=== PATIENT | female | born 1950 | race Two or more races ===

== ENCOUNTER 2016-12-07 17:07 | Emergency (ER) | payer MEDICARE, MEDICAID ==
[2016-12-07 18:15] LABS: HEMATOCRIT 38.9 % (37.0-47.0); HEMOGLOBIN 12.6 g/dl (12.0-16.0); IMMATURE GRANULOCYTES 0.4 % (0.0-1.0); MEAN CELL VOLUME 71.4 fL CALC (80.0-100.0); MEAN CORPUSCULAR HGB 23.1 pG CALC (26.0-32.0); MEAN CORPUSCULAR HGB CONC 32.4 g/L CALC (32.0-36.0); NEUT# 7.23 thou/uL (2.00-7.15); RED BLOOD COUNT 5.45 mill/uL (4.20-5.60); RED CELL DISTRI WIDTH 15.9 % (11.5-15.5)
[2016-12-07 18:36] LABS: ALBUMIN 4.2 g/dL (3.2-5.0); ALKALINE PHOSPHATASE 115 u/l (38-126); ANION GAP 14 (6-22 (CALC)); BILIRUBIN, TOTAL 0.5 mg/dL (0.0-1.4); BUN 16 mg/dL (8-23); BUN/CREATININE RATIO 14 (12-20 (CALC)); CALCIUM 9.4 mg/dL (8.4-10.2); CARBON DIOXIDE 25 mmol/l (22-30); CHLORIDE 105 mmol/l (95-108); CREATININE 1.1 mg/dL (0.5-1.0); GFR 50 ML/MIN (>=60 (CALC)); GFR FOR AFR.AMER. 60 ML/MIN (>=60 (CALC)); GLUCOSE 86 mg/dL (82-115); POTASSIUM 3.9 mmol/l (3.5-5.1); SGOT/AST 34 u/l (9-36); SGPT/ALT 27 u/l (11-66); SODIUM 141 mmol/l (137-146); TOTAL PROTEIN 8.1 g/dL (6.3-8.2)
[2016-12-07 18:42] LABS: INFLUENZA A NONE DETECTED (NONE DETECT); INFLUENZA B NONE DETECTED (NONE DETECT)
[2016-12-07 18:48] LABS: MYOGLOBIN 61 ng/mL (0 - 62)
[2016-12-07] MEDS ORDERED: VENTOLIN HFA IN (20:41)
[2016-12-07] MEDS ORDERED: PROAIR HFA IN (20:42)
[2016-12-07] MEDS ORDERED: EXCEDRIN ES PO (20:43)
[2016-12-07 20:49] VITALS: BP 152/82
== END 2016-12-07 21:00 | disposition home or self-care (01) ==
LOC: ED 17:07
PROVIDERS: Emergency Medicine
DX: J44.1 Chronic obstructive pulmonary disease with (acute) exacerbation (principal); R06.02 Shortness of breath; Z72.0 Tobacco use; R94.31 Abnormal electrocardiogram [ECG] [EKG]

== ENCOUNTER 2017-03-24 17:09 | Emergency (ER) | payer MEDICARE, MEDICAID ==
[~2017-03-24 17:09] MED LIST: EXCEDRIN ES PO; PROAIR HFA IN; VENTOLIN HFA IN
[2017-03-24 18:29] LABS: HEMATOCRIT 41.3 % (37.0-47.0); HEMOGLOBIN 13.3 g/dl (12.0-16.0); IMMATURE GRANULOCYTES 0.3 % (0.0-1.0); MEAN CELL VOLUME 71.5 fL CALC (80.0-100.0); MEAN CORPUSCULAR HGB CONC 32.2 g/L CALC (32.0-36.0); NEUT# 6.72 thou/uL (2.00-7.15); RED BLOOD COUNT 5.78 mill/uL (4.20-5.60); RED CELL DISTRI WIDTH 15.8 % (11.5-15.5)
[2017-03-24 18:49] LABS: ALBUMIN 4.9 g/dL (3.2-5.0); BILIRUBIN, TOTAL 0.7 mg/dL (0.0-1.4); CALCIUM 9.6 mg/dL (8.4-10.2); CREATININE 1.1 mg/dL (0.5-1.0); POTASSIUM 4.5 mmol/l (3.5-5.1); TOTAL PROTEIN 8.5 g/dL (6.3-8.2)
[2017-03-24] MEDS ORDERED: ZITHROMAX250 MG PO (19:06)
[2017-03-24 19:20] VITALS: BP 170/85
== END 2017-03-24 19:21 | disposition home or self-care (01) ==
LOC: ED 17:09
PROVIDERS: Emergency Medicine
DX: I10 Essential (primary) hypertension (principal); R05 Cough; J45.909 Unspecified asthma, uncomplicated; F17.200 Nicotine dependence, unspecified, uncomplicated

== ENCOUNTER 2017-07-04 18:04 | Emergency (ER) | payer MEDICARE ==
[~2017-07-04] VITALS: Ht 165.1 cm; Wt 54.0 kg
[~2017-07-04 18:04] MED LIST changes: +ZITHROMAX250 MG PO
[2017-07-04] MEDS ORDERED: TYLENOL325 M2 (18:50)
[2017-07-04 18:56] LABS: HEMATOCRIT 40.2 % (37.0-47.0); IMMATURE GRANULOCYTES 0.2 % (0.0-1.0); MEAN CELL VOLUME 70.9 fL CALC (80.0-100.0); MEAN CORPUSCULAR HGB 22.9 pG CALC (26.0-32.0); MEAN CORPUSCULAR HGB CONC 32.3 g/L CALC (32.0-36.0); NEUT# 6.4 thou/uL (2.00-7.15); RED BLOOD COUNT 5.67 mill/uL (4.20-5.60); RED CELL DISTRI WIDTH 15.4 % (11.5-15.5)
[2017-07-04 19:10] LABS: ALBUMIN 4.4 g/dL (3.2-5.0); BILIRUBIN, TOTAL 0.6 mg/dL (0.0-1.4); CALCIUM 9.6 mg/dL (8.4-10.2); CREATININE 1.1 mg/dL (0.5-1.0); POTASSIUM 3.8 mmol/l (3.5-5.1); TOTAL PROTEIN 7.8 g/dL (6.3-8.2)
[2017-07-04] MEDS ORDERED: ZITHROMAX250 MG PO (20:20)
[2017-07-04] MEDS ORDERED: MEDDOSEPAK PO (20:20)
[2017-07-04] MEDS ORDERED: PROVENTIL HFA IN (20:21)
[2017-07-04 20:26] VITALS: BP 183/100
== END 2017-07-04 20:30 | disposition home or self-care (01) ==
LOC: ED 18:04
PROVIDERS: Emergency Medicine
DX: R06.00 Dyspnea, unspecified (principal); R05 Cough; R00.1 Bradycardia, unspecified; R09.81 Nasal congestion; F17.210 Nicotine dependence, cigarettes, uncomplicated

== ENCOUNTER 2017-12-20 18:35 | Emergency (ER) | payer MEDICARE ==
[~2017-12-20] VITALS: Ht 165.1 cm; Wt 55.0 kg
[~2017-12-20 18:35] MED LIST changes: +MEDDOSEPAK PO; +PROVENTIL HFA IN; +TYLENOL325 M2
[2017-12-20 19:21] LABS: INFLUENZA A NONE DETECTED (NONE DETECT); INFLUENZA B NONE DETECTED (NONE DETECT)
[2017-12-20] MEDS ORDERED: PROAIR HFA108 MCG/AC IN (19:51)
[2017-12-20 19:57] VITALS: BP 170/91
== END 2017-12-20 20:06 | disposition home or self-care (01) ==
LOC: ED 18:35
PROVIDERS: Emergency Medicine
DX: J45.901 Unspecified asthma with (acute) exacerbation (principal); F17.210 Nicotine dependence, cigarettes, uncomplicated

== ENCOUNTER 2018-03-02 11:38 | Emergency (ER) | payer MEDICARE ==
[~2018-03-02] VITALS: Ht 165.1 cm; Wt 59.0 kg
[~2018-03-02 11:38] MED LIST changes: +PROAIR HFA108 MCG/AC IN
[2018-03-02] MEDS ORDERED: BENADRYL 25MG C25 MG PO (11:53)
[2018-03-02] MEDS ORDERED: ERYTHROMYCIN250 MG PO (11:53)
[2018-03-02] MEDS ORDERED: ZYRTEC10 M5 PO (12:19)
[2018-03-02] MEDS ORDERED: MEDDOSEPAK PO (12:28)
[2018-03-02 12:29] VITALS: BP 139/74
== END 2018-03-02 12:29 | disposition home or self-care (01) ==
LOC: ED 11:38
DX: R21 Rash and other nonspecific skin eruption (principal); J45.909 Unspecified asthma, uncomplicated; F17.210 Nicotine dependence, cigarettes, uncomplicated

== ENCOUNTER 2018-03-14 15:50 | Emergency (ER) | payer MEDICARE ==
[~2018-03-14] VITALS: Ht 165.1 cm; Wt 70.0 kg
[~2018-03-14 15:50] MED LIST changes: +BENADRYL 25MG C25 MG PO; +ERYTHROMYCIN250 MG PO; +ZYRTEC10 M5 PO
[2018-03-14] MEDS ORDERED: MEDDOSEPAK PO (17:04)
[2018-03-14 17:37] VITALS: BP 110/60
== END 2018-03-14 17:38 | disposition home or self-care (01) ==
LOC: ED 15:50
DX: L30.9 Dermatitis, unspecified (principal); J45.909 Unspecified asthma, uncomplicated; F17.210 Nicotine dependence, cigarettes, uncomplicated

== ENCOUNTER 2018-06-06 15:42 | Emergency (ER) | payer MEDICARE ==
[~2018-06-06] VITALS: Ht 165.1 cm; Wt 50.0 kg
[2018-06-06] MEDS ORDERED: AUGMENTIN875TAB PO (16:18)
[2018-06-06 16:50] VITALS: BP 138/87
== END 2018-06-06 16:50 | disposition home or self-care (01) ==
LOC: ED 15:42
DX: S61.452A Open bite of left hand, initial encounter (principal); J45.909 Unspecified asthma, uncomplicated; F17.200 Nicotine dependence, unspecified, uncomplicated; W55.01XA Bitten by cat, initial encounter

== ENCOUNTER 2018-07-12 16:44 | Emergency (ER) | payer MEDICARE ==
[~2018-07-12] VITALS: Ht 165.1 cm; Wt 45.5 kg
[~2018-07-12 16:44] MED LIST changes: +AUGMENTIN875TAB PO
[2018-07-12 17:43] VITALS: BP 138/69
[2018-07-12 17:50] VITALS: BP 108/53
[2018-07-12 18:11] LABS: URINE BILIRUBIN - DIPSTICK NEGATIVE (NEGATIVE); URINE BLOOD DIPSTICK LARGE (NEGATIVE); URINE GLUCOSE - DIPSTICK NEGATIVE (NEGATIVE); URINE KETONE TRACE mg/dL (NEGATIVE); URINE LEUK ESTERASE NEGATIVE (NEGATIVE); URINE NITRITE - DIPSTICK NEGATIVE (Negative); URINE PROTEIN - DIPSTICK >=300 mg/dL (NEG-TRACE); URINE SPECIFIC GRAVITY >=1.030; URINE UROBILINOGEN - DIPSTICK 0.2 E.U./dL (0.2)
[2018-07-12 18:14] VITALS: BP 117/63
[2018-07-12 18:16] LABS: URINE CLARITY CLOUDY; URINE COLOR BLOODY; URINE EPITHELIAL CELLS FEW EPI/hpf (0-FEW); URINE RBC TNTC RBC/hpf (0-5)
[2018-07-12 18:47] VITALS: BP 117/63
== END 2018-07-12 18:30 ==
LOC: ED 16:44
PROVIDERS: Emergency Medicine
PROC: 2W3RX1Z Immobilization of Left Lower Leg using Splint (ICD-10-PCS; principal; 2018-07-12)
PROC: 0T9B70Z Drainage of Bladder with Drainage Device, Via Natural or Artificial Opening (ICD-10-PCS; 2018-07-12)
PROC: 30233N1 Transfusion of Nonautologous Red Blood Cells into Peripheral Vein, Percutaneous Approach (ICD-10-PCS; 2018-07-12)
PROC: 30233N1 Transfusion of Nonautologous Red Blood Cells into Peripheral Vein, Percutaneous Approach (ICD-10-PCS; 2018-07-12)
DX: S82.452B Displaced comminuted fracture of shaft of left fibula, initial encounter for open fracture type I or II (principal); S82.252B Displaced comminuted fracture of shaft of left tibia, initial encounter for open fracture type I or II; S32.592A Other specified fracture of left pubis, initial encounter for closed fracture; S32.591A Other specified fracture of right pubis, initial encounter for closed fracture; R31.9 Hematuria, unspecified; J45.909 Unspecified asthma, uncomplicated; F17.200 Nicotine dependence, unspecified, uncomplicated; V09.00XA Pedestrian injured in nontraffic accident involving unspecified motor vehicles, initial encounter; Y93.89 Activity, other specified; Y92.481 Parking lot as the place of occurrence of the external cause
CPT/HCPCS: P9016

== ENCOUNTER 2018-12-28 17:17 | Emergency (ER) | payer MEDICARE ==
[~2018-12-28] VITALS: Ht 165.1 cm; Wt 51.0 kg
[2018-12-28] MEDS ORDERED: AUGMENTIN875TAB PO (17:45)
[2018-12-28] MEDS ORDERED: ALL DAY10 MG PO (17:45)
[2018-12-28] MEDS ORDERED: VENTOLIN H108 MCG/AC PR (17:56)
[2018-12-28 18:00] VITALS: BP 139/91
== END 2018-12-28 18:00 | disposition home or self-care (01) ==
LOC: ED 17:17
DX: S80.812A Abrasion, left lower leg, initial encounter (principal); F17.210 Nicotine dependence, cigarettes, uncomplicated; W55.03XA Scratched by cat, initial encounter

== ENCOUNTER 2019-01-16 20:55 | Observation (INO) | payer MEDICARE ==
[~2019-01-16] VITALS: Ht 165.1 cm; Wt 49.0 kg
[~2019-01-16 20:55] MED LIST changes: +ALL DAY10 MG PO; +VENTOLIN H108 MCG/AC PR
[2019-01-16 21:33] LABS: HEMATOCRIT 40.3 % (37.0-47.0); HEMOGLOBIN 12.9 g/dl (12.0-16.0); IMMATURE GRANULOCYTES 0.4 % (0.0-5.0); MEAN CELL VOLUME 70.6 fL CALC (80.0-100.0); MEAN CORPUSCULAR HGB 22.6 pG CALC (26.0-32.0); NEUT# 6.76 thou/uL (2.00-7.15); RED BLOOD COUNT 5.71 mill/uL (4.20-5.60); RED CELL DISTRI WIDTH 15.7 % (11.5-15.5)
[2019-01-16] MEDS ORDERED: BENADRYL 25MG C25 MG PO (21:35)
[2019-01-16] MEDS ORDERED: MAPAP325 MG PO (21:36)
[2019-01-16] MEDS ORDERED: ASPIRIN325 MG PO (21:37)
[2019-01-16] MEDS ORDERED: AMLODIPINE BES2.5 MG PO (21:37)
[2019-01-16] MEDS ORDERED: ROBITUSSIN200 MG/10 PO (21:38)
[2019-01-16 21:48] LABS: ALBUMIN 4.4 g/dL (3.2-5.0); ALKALINE PHOSPHATASE 135 u/l (38-126); ANION GAP 14 (6-22 (CALC)); BILIRUBIN, TOTAL 0.4 mg/dL (0.0-1.4); BUN 15 mg/dL (8-23); BUN/CREATININE RATIO 17 (12-20 (CALC)); CARBON DIOXIDE 25 mmol/l (22-30); CHLORIDE 104 mmol/l (95-108); CREATININE 0.9 mg/dL (0.5-1.0); GFR > 60 ML/MIN (>=60 (CALC)); GFR FOR AFR.AMER. > 60 ML/MIN (>=60 (CALC)); POTASSIUM 3.4 mmol/l (3.5-5.1); PROTHROMBIN TIME 10.7 SECONDS (9.0-12.5); SGOT/AST 30 u/l (9-36); SODIUM 139 mmol/l (137-146); TOTAL PROTEIN 7.4 g/dL (6.3-8.2)
[2019-01-16 21:57] LABS: MYOGLOBIN 57 ng/mL (0 - 62)
[2019-01-17 02:13] VITALS: BP 158/87
[2019-01-17 04:46] VITALS: BP 152/83
[2019-01-17 08:08] VITALS: BP 137/81
[2019-01-17 11:05] VITALS: BP 157/82
[2019-01-17 16:05] VITALS: BP 154/90
[2019-01-17 19:06] VITALS: BP 138/73
[2019-01-18] VITALS: BP 127/74
[2019-01-18 04:06] VITALS: BP 151/77
[2019-01-18 05:32] LABS: HEMATOCRIT 41.1 % (37.0-47.0); HEMOGLOBIN 13.2 g/dl (12.0-16.0); IMMATURE GRANULOCYTES 0.4 % (0.0-5.0); MEAN CELL VOLUME 70.7 fL CALC (80.0-100.0); MEAN CORPUSCULAR HGB 22.7 pG CALC (26.0-32.0); MEAN CORPUSCULAR HGB CONC 32.1 g/L CALC (32.0-36.0); NEUT# 8.59 thou/uL (2.00-7.15); RED BLOOD COUNT 5.81 mill/uL (4.20-5.60); RED CELL DISTRI WIDTH 15.4 % (11.5-15.5)
[2019-01-18 05:55] LABS: ALBUMIN 4.4 g/dL (3.2-5.0); ALKALINE PHOSPHATASE 137 u/l (38-126); ANION GAP 16 (6-22 (CALC)); BILIRUBIN, TOTAL 0.3 mg/dL (0.0-1.4); BUN 19 mg/dL (8-23); BUN/CREATININE RATIO 22 (12-20 (CALC)); CARBON DIOXIDE 26 mmol/l (22-30); CHLORIDE 105 mmol/l (95-108); CREATININE 0.9 mg/dL (0.5-1.0); GFR > 60 ML/MIN (>=60 (CALC)); GFR FOR AFR.AMER. > 60 ML/MIN (>=60 (CALC)); MAGNESIUM 2.1 mg/dL (1.6-2.3); SGOT/AST 27 u/l (9-36); SODIUM 142 mmol/l (137-146); TOTAL PROTEIN 7.3 g/dL (6.3-8.2)
[2019-01-18 06:07] LABS: POTASSIUM 4.7 mmol/l (3.5-5.1)
[2019-01-18 08:35] VITALS: BP 136/79
[2019-01-18 10:20] LABS: URINE BILIRUBIN - DIPSTICK NEGATIVE (NEGATIVE); URINE BLOOD DIPSTICK NEGATIVE (NEGATIVE); URINE COLOR YELLOW; URINE GLUCOSE - DIPSTICK NEGATIVE (NEGATIVE); URINE KETONE NEGATIVE (NEGATIVE); URINE LEUK ESTERASE NEGATIVE (NEGATIVE); URINE NITRITE - DIPSTICK NEGATIVE (Negative); URINE PROTEIN - DIPSTICK NEGATIVE (NEG-TRACE); URINE UROBILINOGEN - DIPSTICK 0.2 E.U./dL (0.2)
[2019-01-18 10:28] LABS: CHOLESTEROL HDL RATIO 2.7 (<4.4 (CALC))
[2019-01-18 10:40] VITALS: BP 159/86
[2019-01-18] MEDS ORDERED: PANTOPRAZOLE SO40 M1 PO (12:06)
[2019-01-18] MEDS ORDERED: MEDDOSEPAK PO (12:06)
[2019-01-18] MEDS ORDERED: ZPAK PO (12:07)
[2019-01-18 14:45] VITALS: BP 139/69
[2019-01-18 19:09] VITALS: BP 145/85
[2019-01-19] VITALS: BP 156/89
[2019-01-19 04:09] VITALS: BP 171/92
[2019-01-19 07:41] VITALS: BP 159/82
[2019-01-19 11:28] VITALS: BP 145/70
== END 2019-01-19 15:48 | disposition home or self-care (01) ==
LOC: ED 20:55 → ED-I 01-17 01:13 → ED 01-17 01:40 → MS2 01-17 01:41
PROVIDERS: Emergency Medicine; Internal Medicine Nephrology; Nurse Practitioner Family; ADMIT Internal Medicine; ATTEND Internal Medicine
DX: J44.1 Chronic obstructive pulmonary disease with (acute) exacerbation (principal); J44.0 Chronic obstructive pulmonary disease with (acute) lower respiratory infection; J20.9 Acute bronchitis, unspecified; I10 Essential (primary) hypertension; F41.1 Generalized anxiety disorder; F32.9 Major depressive disorder, single episode, unspecified; F17.200 Nicotine dependence, unspecified, uncomplicated; F20.9 Schizophrenia, unspecified; E46 Unspecified protein-calorie malnutrition; R09.02 Hypoxemia; R06.89 Other abnormalities of breathing; F22 Delusional disorders; Z68.1 Body mass index [BMI] 19.9 or less, adult
CPT/HCPCS: J1650

== ENCOUNTER 2019-07-10 20:47 | Emergency (ER) | payer MEDICARE ==
[~2019-07-10] VITALS: Ht 165.1 cm; Wt 48.0 kg
[~2019-07-10 20:47] MED LIST changes: +AMLODIPINE BES2.5 MG PO; +ASPIRIN325 MG PO; +MAPAP325 MG PO; +PANTOPRAZOLE SO40 M1 PO; +ROBITUSSIN200 MG/10 PO; +ZPAK PO
[2019-07-10 21:30] LABS: HEMOGLOBIN 11.6 g/dl (12.0-16.0); IMMATURE GRANULOCYTES 0.3 % (0.0-5.0); MEAN CORPUSCULAR HGB 22.6 pG CALC (26.0-32.0); MEAN CORPUSCULAR HGB CONC 31.4 g/L CALC (32.0-36.0); NEUT# 5.52 thou/uL (2.00-7.15); RED BLOOD COUNT 5.14 mill/uL (4.20-5.60); RED CELL DISTRI WIDTH 15.9 % (11.5-15.5)
[2019-07-10 21:47] LABS: ALKALINE PHOSPHATASE 95 u/l (38-126); BILIRUBIN, TOTAL 0.3 mg/dL (0.0-1.4); BUN 21 mg/dL (8-23); BUN/CREATININE RATIO 18 (12-20 (CALC)); CARBON DIOXIDE 28 mmol/l (22-30); CHLORIDE 103 mmol/l (95-108); CREATININE 1.2 mg/dL (0.5-1.0); ETHYL ALCOHOL 0 mg/dl (0-30); GFR 45 ML/MIN (>=60 (CALC)); GFR FOR AFR.AMER. 54 ML/MIN (>=60 (CALC)); MAGNESIUM 2.2 mg/dL (1.6-2.3); SODIUM 141 mmol/l (137-146); TOTAL PROTEIN 7.1 g/dL (6.3-8.2)
[2019-07-10 21:50] LABS: ANION GAP 14 (6-22 (CALC)); POTASSIUM 3.5 mmol/l (3.5-5.1); SGOT/AST 128 u/l (9-36)
[2019-07-11 01:56] LABS: URINE BILIRUBIN - DIPSTICK NEGATIVE (NEGATIVE); URINE BLOOD DIPSTICK NEGATIVE (NEGATIVE); URINE COLOR YELLOW; URINE GLUCOSE - DIPSTICK NEGATIVE (NEGATIVE); URINE KETONE TRACE mg/dL (NEGATIVE); URINE LEUK ESTERASE TRACE (NEGATIVE); URINE NITRITE - DIPSTICK NEGATIVE (Negative); URINE PROTEIN - DIPSTICK TRACE mg/dL (NEG-TRACE); URINE UROBILINOGEN - DIPSTICK 0.2 E.U./dL (0.2)
[2019-07-11 01:58] LABS: BARBITURATES NEGATIVE (NEGATIVE); COCAINE NEGATIVE (NEGATIVE); METHADONE NEGATIVE (NEGATIVE); OXCYCODONE NEGATIVE (NEGATIVE); TETRAHYDROCANNABIONOL NEGATIVE (NEGATIVE); TRICYLIC ANTIDEPRESSANTS NEGATIVE (NEGATIVE)
[2019-07-11 03:35] VITALS: BP 110/58
== END 2019-07-11 03:35 ==
LOC: ED 20:47
PROVIDERS: Family Medicine
DX: F20.0 Paranoid schizophrenia (principal); I10 Essential (primary) hypertension
CPT/HCPCS: S0166

== ENCOUNTER 2019-07-19 12:50 | Emergency (ER) | payer MEDICARE ==
[~2019-07-19] VITALS: Ht 165.1 cm; Wt 50.0 kg
[2019-07-19 14:00] VITALS: BP 152/74
[2019-07-19] MEDS ORDERED: MEDDOSEPAK PO (14:59)
== END 2019-07-19 15:54 | disposition home or self-care (01) ==
LOC: ED 12:50
DX: J44.1 Chronic obstructive pulmonary disease with (acute) exacerbation (principal); I10 Essential (primary) hypertension; F17.200 Nicotine dependence, unspecified, uncomplicated

== ENCOUNTER 2019-10-15 | Emergency (ER) | payer MEDICARE ==
[2019-10-15] MEDS ORDERED: PREDNISONE50 MG PO ×2 (19:02)
[2019-10-15] MEDS ORDERED: DOXYCYCL HYC100 MG PO (19:02)
== END 2019-10-15 19:21 | disposition home or self-care (01) ==
DX: J45.901 Unspecified asthma with (acute) exacerbation (principal); J44.1 Chronic obstructive pulmonary disease with (acute) exacerbation; J44.0 Chronic obstructive pulmonary disease with (acute) lower respiratory infection; J18.9 Pneumonia, unspecified organism; I10 Essential (primary) hypertension; F17.210 Nicotine dependence, cigarettes, uncomplicated

== ENCOUNTER 2020-02-07 14:51 | Emergency (ER) | payer MEDICARE ==
[~2020-02-07] VITALS: Ht 165.1 cm; Wt 45.0 kg
[~2020-02-07 14:51] MED LIST changes: +DOXYCYCL HYC100 MG PO; +PREDNISONE50 MG PO
[2020-02-07 16:08] LABS: HEMATOCRIT 39.1 % (37.0-47.0); HEMOGLOBIN 12.3 g/dl (12.0-16.0); IMMATURE GRANULOCYTES 0.2 % (0.0-5.0); MEAN CELL VOLUME 70.6 fL CALC (80.0-100.0); MEAN CORPUSCULAR HGB 22.2 pG CALC (26.0-32.0); MEAN CORPUSCULAR HGB CONC 31.5 g/dL CAL (32.0-36.0); NEUT# 5.78 thou/uL (2.00-7.15); RED BLOOD COUNT 5.54 mill/uL (4.20-5.60)
[2020-02-07 16:40] LABS: ALBUMIN 4.4 g/dL (3.2-5.0); ALKALINE PHOSPHATASE 102 u/l (38-126); ANION GAP 10 (6-22 (CALC)); BUN 22 mg/dL (8-23); BUN/CREATININE RATIO 23 (12-20 (CALC)); CARBON DIOXIDE 29 mmol/l (22-30); CHLORIDE 101 mmol/l (95-108); GFR 55 ML/MIN (>=60 (CALC)); GFR FOR AFR.AMER. > 60 ML/MIN (>=60 (CALC)); POTASSIUM 3.6 mmol/l (3.5-5.1); SGOT/AST 38 u/l (9-36); SODIUM 137 mmol/l (137-146); TOTAL PROTEIN 7.6 g/dL (6.3-8.2)
[2020-02-07 16:41] LABS: ACT PARTIAL THROMBO TIME 28.1 SECONDS (20.0-32.5); PROTHROMBIN TIME 10.4 SECONDS (9.0-12.5)
[2020-02-07 16:47] LABS: BILIRUBIN, TOTAL 0.5 mg/dL (0.0-1.4)
[2020-02-07 16:52] LABS: MYOGLOBIN 113 ng/mL (0 - 62)
[2020-02-07] MEDS ORDERED: PROAIR HFA108 MCG/AC IN (17:18)
[2020-02-07 18:57] VITALS: BP 167/96
[2020-02-07] MEDS ORDERED: DOXYCYCL HYC100 MG PO (19:43)
== END 2020-02-07 20:00 | disposition home or self-care (01) ==
LOC: ED 14:51
PROVIDERS: Emergency Medicine
DX: J44.1 Chronic obstructive pulmonary disease with (acute) exacerbation (principal); J18.9 Pneumonia, unspecified organism; J44.0 Chronic obstructive pulmonary disease with (acute) lower respiratory infection; I10 Essential (primary) hypertension; F17.200 Nicotine dependence, unspecified, uncomplicated; Z20.828 Contact with and (suspected) exposure to other viral communicable diseases
CPT/HCPCS: Q9967

== ENCOUNTER 2021-01-08 12:27 | Emergency (ER) | payer OTHER ==
[~2021-01-08] VITALS: Ht 165.1 cm; Wt 51.0 kg
[2021-01-08 12:54] LABS: HEMATOCRIT 42.3 % (37.0-47.0); HEMOGLOBIN 12.8 g/dl (12.0-16.0); IMMATURE GRANULOCYTES 0.4 % (0.0-5.0); MEAN CELL VOLUME 73.3 fL CALC (80.0-100.0); MEAN CORPUSCULAR HGB 22.2 pG CALC (26.0-32.0); MEAN CORPUSCULAR HGB CONC 30.3 g/dL CAL (32.0-36.0); NEUT# 4.33 thou/uL (2.00-7.15); RED BLOOD COUNT 5.77 mill/uL (4.20-5.60); RED CELL DISTRI WIDTH 16.9 % (11.5-15.5)
[2021-01-08 13:08] LABS: ALBUMIN 4.1 g/dL (3.2-5.0); ALKALINE PHOSPHATASE 95 u/l (38-126); ANION GAP 8 (6-22 (CALC)); BILIRUBIN, TOTAL 0.3 mg/dL (0.0-1.4); BUN 25 mg/dL (8-23); BUN/CREATININE RATIO 20 (12-20 (CALC)); CARBON DIOXIDE 32 mmol/l (22-30); CHLORIDE 102 mmol/l (95-108); CREATININE 1.3 mg/dL (0.5-1.0); GFR 40 ML/MIN (>=60 (CALC)); GFR FOR AFR.AMER. 49 ML/MIN (>=60 (CALC)); MAGNESIUM 2.1 mg/dL (1.6-2.3); POTASSIUM 3.4 mmol/l (3.5-5.1); SGOT/AST 38 u/l (9-36); SODIUM 139 mmol/l (137-146); TOTAL PROTEIN 7.6 g/dL (6.3-8.2)
--- NOTE | 2021-01-08 13:34 | NUR ---
MEDICATION ADMIN LATE PER AWAITING SARS COVID RESULTS. BRONCHODILATOR THERAPY ADMINISTERED ONCE RESULTS AVAILABLE AND NEGATIVE.
[2021-01-08] MEDS ORDERED: MEDDOSEPAK PO (14:25)
[2021-01-08] MEDS ORDERED: ZITHROMAX500 MG PO (14:25)
[2021-01-08] MEDS ORDERED: XOPENEX HF45 MCG/ACT IN (14:25)
[2021-01-08 14:52] VITALS: BP 180/86
== END 2021-01-08 14:53 | disposition home or self-care (01) | DRG 194 ==
LOC: ED 12:27
DX: J18.9 Pneumonia, unspecified organism (principal); J45.901 Unspecified asthma with (acute) exacerbation; I10 Essential (primary) hypertension; F17.200 Nicotine dependence, unspecified, uncomplicated; T48.6X6A Underdosing of antiasthmatics, initial encounter; Z91.128 Patient's intentional underdosing of medication regimen for other reason; Z20.822 Contact with and (suspected) exposure to COVID-19

== ENCOUNTER 2021-06-13 16:48 | Emergency (ER) | payer MEDICARE, MEDICAID ==
[~2021-06-13] VITALS: Ht 165.1 cm; Wt 40.0 kg
[~2021-06-13 16:48] MED LIST changes: +XOPENEX HF45 MCG/ACT IN; +ZITHROMAX500 MG PO
[2021-06-13] MEDS ORDERED: PENICILLN VK500 MG PO (17:15)
[2021-06-13 17:30] VITALS: BP 132/62
== END 2021-06-13 17:37 | disposition home or self-care (01) ==
LOC: ED 16:48
DX: K05.10 Chronic gingivitis, plaque induced (principal); K02.9 Dental caries, unspecified; M84.68XA Pathological fracture in other disease, other site, initial encounter for fracture; I10 Essential (primary) hypertension; J45.909 Unspecified asthma, uncomplicated; F17.200 Nicotine dependence, unspecified, uncomplicated

== ENCOUNTER 2021-08-14 08:43 | Observation (INO) | payer OTHER, MEDICARE, MEDICAID ==
[~2021-08-14] VITALS: Ht 165.1 cm; Wt 44.0 kg
[~2021-08-14 08:43] MED LIST changes: +PENICILLN VK500 MG PO
--- NOTE | 2021-08-14 08:43 | NUR ---
PATIENT TO ROOM VIA EMS WITH GUARD @ [id number]
--- NOTE | 2021-08-14 08:52 | NUR ---
EKG COMPLETED @08 NASEL SWABS OBTAINED @ 3681 THROAT SWAB OBTAINED @ 5456
--- NOTE | 2021-08-14 10:15 | NUR ---
Reassessment of patient completed. No distress noted.
[2021-08-14 10:53] LABS: HEMATOCRIT 39.2 % (37.0-47.0); HEMOGLOBIN 12.6 g/dl (12.0-16.0); IMMATURE GRANULOCYTES 0.2 % (0.0-5.0); MEAN CELL VOLUME 71.1 fL CALC (80.0-100.0); MEAN CORPUSCULAR HGB 22.9 pG CALC (26.0-32.0); MEAN CORPUSCULAR HGB CONC 32.1 g/dL CAL (32.0-36.0); NEUT# 8.3 thou/uL (2.00-7.15); RED BLOOD COUNT 5.51 mill/uL (4.20-5.60); RED CELL DISTRI WIDTH 15.5 % (11.5-15.5)
[2021-08-14 11:07] LABS: ALBUMIN 4.2 g/dL (3.2-5.0); ALKALINE PHOSPHATASE 102 u/l (38-126); ANION GAP 11 (6-22 (CALC)); BILIRUBIN, TOTAL 0.4 mg/dL (0.0-1.4); BUN 11 mg/dL (8-23); BUN/CREATININE RATIO 14 (12-20 (CALC)); CARBON DIOXIDE 29 mmol/l (22-30); CHLORIDE 99 mmol/l (95-108); CREATININE 0.8 mg/dL (0.5-1.0); GFR > 60 ML/MIN (>=60 (CALC)); GFR FOR AFR.AMER. > 60 ML/MIN (>=60 (CALC)); POTASSIUM 3.3 mmol/l (3.5-5.1); SGOT/AST 41 u/l (9-36); SODIUM 136 mmol/l (137-146); TOTAL PROTEIN 7.7 g/dL (6.3-8.2)
--- NOTE | 2021-08-14 11:24 | NUR ---
UPDATE GIVEN TO CORRECTIONS NURSE
[2021-08-14 12:44] LABS: URINE BILIRUBIN - DIPSTICK NEGATIVE (NEGATIVE); URINE BLOOD DIPSTICK NEGATIVE (NEGATIVE); URINE COLOR YELLOW; URINE GLUCOSE - DIPSTICK NEGATIVE (NEGATIVE); URINE KETONE NEGATIVE (NEGATIVE); URINE LEUK ESTERASE NEGATIVE (NEGATIVE); URINE PROTEIN - DIPSTICK NEGATIVE (NEG-TRACE); URINE UROBILINOGEN - DIPSTICK 0.2 E.U./dL (0.2)
[2021-08-14 12:49] LABS: URINE NITRITE - DIPSTICK NEGATIVE (Negative)
--- NOTE | 2021-08-14 14:09 | NUR ---
WAS NOT NOTIFIED OF ALBUTEROL TX.
--- NOTE | 2021-08-14 14:10 | NUR ---
FIRST ARREMPT TO CALL PATIENT REPORT, NURSE TO RETURN CALL.
--- NOTE | 2021-08-14 15:07 | NUR ---
SECOND ATTEMPT TO CALL PATIENT REPORT.
--- NOTE | 2021-08-14 15:40 | NUR ---
REPORT PROVIDED TO SHRAVAN SMITH, ON [facility].
--- NOTE | 2021-08-14 15:45 | NUR ---
CALL FROM MEDICAL/SURGICAL FOR REPORT, REPORT GIVEN TO NURSE FOR ROOM 269
--- NOTE | 2021-08-14 16:20 | NUR ---
REPORT RECEIVED FROM PAUL IN ED, PT TRANSPORTED TO UNIT VIA STRETCHER ARRIVING @ 1606 AND TRANSFERRED TO BED. ALERT AND ORIENTED X 4, C/O MOUTH/TEETH PAIN, IV ANTIBIOTIC INFUSING, TELE MONITOR IN PLACE, ORIENTED TO ROOM AND CALL NGUYEN, GUARD X 1 AT BEDSIDE, PT SHACKLED TO BED WHICH IS IN LOWEST POSITION AND CALL NGUYEN IN REACH.
[2021-08-14 16:30] VITALS: BP 154/72
[2021-08-14 18:53] VITALS: BP 126/61
--- NOTE | 2021-08-14 20:30 | NUR ---
FOUND PATIENT RESTING IN BED, AWAKE, A&OX4, NO PAIN OR NEEDS REPORTED AT THIS TIME, EDUCATED ABOUT MEDICATION SCHEDULE/TIMES, VOICES UNDERSTANDING, CALL NGUYEN AT REACH, ENCOURAGED TO CALL IF NEEDED, WILL PROVIDED FRESH WATER, WILL FOLLOW UP WITH HOURLY ROUDING.
[2021-08-15 00:06] VITALS: BP 149/70
--- NOTE | 2021-08-15 01:06 | NUR ---
C/O UPPER TEETH PAIN AND FOREHEAD PAIN, MEDICATED WITH TYLENOL PER EMAR, NO S/S OF DISTRESS. WILL FOLLOW UP WITH PAIN REASSESSMENT. PROVIDED FRESH WATER. cALL NGUYEN AT REACH.
--- NOTE | 2021-08-15 03:55 | NUR ---
PATIENT IS RESTING IN BED, AWAKE, ASKING FOR A SNACK AT THIS TIME, PROVIDED FRESH WATER AND APPLE SAUCE.
[2021-08-15 05:29] VITALS: BP 140/83
[2021-08-15 05:34] LABS: HEMATOCRIT 36.3 % (37.0-47.0); HEMOGLOBIN 11.5 g/dl (12.0-16.0); MEAN CORPUSCULAR HGB 30.3 pG CALC (26.0-32.0); MEAN CORPUSCULAR HGB CONC 31.7 g/dL CAL (32.0-36.0); RED BLOOD COUNT 3.8 mill/uL (4.20-5.60); RED CELL DISTRI WIDTH 14.4 % (11.5-15.5)
[2021-08-15 05:56] LABS: MEAN CELL VOLUME 95.5 fL CALC (80.0-100.0)
[2021-08-15 06:13] LABS: ANION GAP 6 (6-22 (CALC)); BUN 22 mg/dL (8-23); BUN/CREATININE RATIO 33 (12-20 (CALC)); CARBON DIOXIDE 32 mmol/l (22-30); CHLORIDE 102 mmol/l (95-108); CREATININE 0.7 mg/dL (0.5-1.0); GFR > 60 ML/MIN (>=60 (CALC)); GFR FOR AFR.AMER. > 60 ML/MIN (>=60 (CALC)); MAGNESIUM 1.7 mg/dL (1.6-2.3); SODIUM 136 mmol/l (137-146)
[2021-08-15 06:20] LABS: POTASSIUM 4.3 mmol/l (3.5-5.1)
--- NOTE | 2021-08-15 06:25 | NUR ---
RESTING IN BED WITH EYES CLOSED, NO PAIN OR NEEDS REPORTED AT THIS TIME, ENCOURAGED TO CALL IF NEEDED, CALL NGUYEN AT REACH, DROPLET PRECAUTIONS CONTINUE.
--- NOTE | 2021-08-15 07:30 | NUR ---
RECIEVED REPORT FROM SHRAVAN THORPE
--- NOTE | 2021-08-15 07:32 | NUR ---
REPORT GIVEN TO DAYSHIFT NURSE VIA SBAR FORMAT. PATIENT IS STABLE.
[2021-08-15 09:35] VITALS: BP 158/75
--- NOTE | 2021-08-15 09:35 | NUR ---
PT RESTING IN SEMI FOWLERS POSITION WATCHING TV, GUARD X1 AT BEDSIDE. ASSESSMENT AND VITALS COMPLETED. BP 158/75, HR 89, O2 98% ON ROOM AIR. RESPIRATIONS ARE EVEN AND UNLABORED WITH NO DISTRESS NOTED. LUNG SOUNDS ARE CLEAR.NONPRODUCTIVE COUGH NOTED. HEART RHYTHM NORMAL WITH TELE IN PLACE, SR WITH PAC PER ER MONITORING. BOWEL SOUNDS ACTIVE, REPORTED BL THIS AM.PULSES STRONG. SKIN INTACT. LEFT ANKLE SHACKLED TO BED. #20G EMS FLUSHED, SITE APPEARS HEALTHY AND PATENT. PT COMPLAINS OF 8/10 PAIN IN BACK TEETH, TYLENOL ADMINISTERED. PT DENIES OF ANY ADDITIONAL NEEDS. ALL SAFETY PRECAUTIONS ARE IN PLACE WITH CALL LIGHT IN REACH. WILL CONTINUE TO MONITOR
--- NOTE | 2021-08-15 10:10 | NUR ---
DR WILSON AND ZAKIA,ANDACIA AT BEDSIDE
[2021-08-15] MEDS ORDERED: MEDDOSEPAK PO (10:31)
[2021-08-15] MEDS ORDERED: PENICILLN VK500 MG PO (10:31)
[2021-08-15] MEDS ORDERED: TAM75CAP PO (10:31)
[2021-08-15 10:56] VITALS: BP 147/63
--- NOTE | 2021-08-15 12:02 | NUR ---
RIGHT OF WAY MAINTENANCE SUPERVISOR SPOKE WITH STAFF FROM [facility]. UPDATE PROVIED. DC INSTRUCTIONS EXPLAINED.
--- NOTE | 2021-08-15 12:51 | NUR ---
PT EDCATED ON DC INSTRUCTIONS. PT REFUSING TO SIGN AT THIS TIME. PT STATES SHE WANTS TO GO TO ANOTHER HOSPITAL OR HOME. PT WANTS TO SPEAK TO CM TO LESSEN GROUP HOME SENTENCE DUE TO GROUP HOME BEING IN DIRTY CONDITIONS. PT INFORMED THAT WILL NOT HAPPEN. MONIQUE AT BEDSIDE TO SPEAK WITH PT. IV REMOVED WITH CATH STILL INTACT. TELE MONITORING REMOVED. ER INFORMED.
--- NOTE | 2021-08-15 13:05 | NUR ---
Discharge instructions given. Patient verbalizes understanding of same. [facility] All belongings sent with pt. PT DC BACK TO [facility] IN STABLE CONDITION. PT CONTINUES TO REFUSE TO GO BACK TO [facility]. GAURD AND SECURITY AT BEDSIDE TO ASSIST PT INTO WHEELCHAIR. PT REFUSED TO CHANGE FROM [facility]OWN. ALL PERSONAL BELONGS AND DC INSTRUCTIONS IN GAURD POSESSION.
== END 2021-08-15 13:05 | DRG 192 ==
LOC: ED 08:43 → ED-I 13:05 → ED 13:16 → MS2 13:17
PROVIDERS: Emergency Medicine; ADMIT Hospitalist; ATTEND Hospitalist
DX: J44.1 Chronic obstructive pulmonary disease with (acute) exacerbation (principal); J10.1 Influenza due to other identified influenza virus with other respiratory manifestations; I10 Essential (primary) hypertension; K02.9 Dental caries, unspecified; F17.200 Nicotine dependence, unspecified, uncomplicated; Z20.822 Contact with and (suspected) exposure to COVID-19
CPT/HCPCS: G0378; J1650; Q9967

== ENCOUNTER 2024-03-31 20:20 | Emergency (ER) | payer SELFPAY ==
[~2024-03-31] VITALS: Ht 162.6 cm; Wt 52.0 kg
[~2024-03-31 20:20] MED LIST changes: +TAM75CAP PO
[2024-03-31] MEDS ORDERED: ALUM & MAG HYDROX-SIMETHICONE 30 ML PO ONE (20:40)
[2024-03-31] MEDS ORDERED: LIDOCAINE VISCOUS 2% 15 ML UDC PO ONE (20:40)
[2024-03-31] MEDS ORDERED: FAMOTIDINE 20 MG/TAB PO ONE (20:40)
[2024-03-31 21:17] LABS: URINE BILIRUBIN - DIPSTICK Negative (NEGATIVE); URINE BLOOD DIPSTICK Negative (NEGATIVE); URINE GLUCOSE - DIPSTICK Negative (NEGATIVE); URINE KETONE Negative (NEGATIVE); URINE LEUK ESTERASE Negative (NEGATIVE); URINE NITRITE - DIPSTICK Negative (Negative); URINE PROTEIN - DIPSTICK 30 mg/dL (NEG-TRACE); URINE SPECIFIC GRAVITY 1.025; URINE UROBILINOGEN - DIPSTICK 0.2 E.U./dL (0.2)
[2024-03-31 21:18] LABS: URINE COLOR Yellow; URINE RBC 0-2 RBC/hpf (0-5); URINE SQUAMOUS EPITHELIAL CELL FEW EPI/hpf (0-FEW); URINE WBC 0-2 WBC/hpf (0-5)
[2024-03-31 21:31] LABS: ALBUMIN 4.6 g/dL (3.2-5.0); BILIRUBIN, TOTAL 0.4 mg/dL (0.02-1.3); POTASSIUM 3.8 mmol/l (3.5-5.1); TOTAL PROTEIN 8.3 g/dL (6.3-8.2)
[2024-03-31] MEDS ORDERED: MIRALAX17 GM PO (22:05)
[2024-03-31 22:20] VITALS: BP 150/96
[2024-04-01] MEDS ORDERED: VOLTAREN - GENE75 MG PO (22:03)
== END 2024-03-31 22:20 | disposition home or self-care (01) | DRG 392 ==
LOC: ED 20:20
PROVIDERS: Emergency Medicine
DX: K59.00 Constipation, unspecified (principal); F20.9 Schizophrenia, unspecified; I10 Essential (primary) hypertension; J44.9 Chronic obstructive pulmonary disease, unspecified

== ENCOUNTER 2024-04-01 21:43 | Emergency (ER) | payer MEDICARE ==
[~2024-04-01] VITALS: Ht 162.6 cm; Wt 52.0 kg
[~2024-04-01 21:43] MED LIST changes: +MIRALAX17 GM PO
[2024-04-01] MEDS ORDERED: ACETAMINOPHEN 500 MG TAB PO ONE (21:50)
[2024-04-01] MEDS ORDERED: MAGNESIUM CITRATE 296 ML/BTL PO ONE (21:50)
[2024-04-01] MEDS ORDERED: KETOROLAC TROMETHAMINE 30 MG/ML SDV IM ONE (21:50)
[2024-04-01] MEDS ORDERED: VOLTAREN - GENE75 MG PO (22:03)
[2024-04-02 00:05] VITALS: BP 128/70
== END 2024-04-02 00:05 | disposition home or self-care (01) ==
LOC: ED 21:43
DX: S39.012A Strain of muscle, fascia and tendon of lower back, initial encounter (principal); K59.00 Constipation, unspecified; I10 Essential (primary) hypertension; J45.909 Unspecified asthma, uncomplicated; T50.906A Underdosing of unspecified drugs, medicaments and biological substances, initial encounter; Z91.128 Patient's intentional underdosing of medication regimen for other reason; X58.XXXA Exposure to other specified factors, initial encounter